=== PATIENT | female | born 1975 | race Caucasian/White ===

== ENCOUNTER 2018-01-30 22:42 | Emergency (ER) | payer BC ==
[~2018-01-30] VITALS: Ht 170.2 cm; Wt 117.3 kg
[~2018-01-30 22:42] MED LIST: B12 5,000 MCG1 EACH; CIPRO500 MG PO; CITALOPRAM HBR40 M1 PO; CYCLOBENZAPRINE5 MG; INSULIN PUMP1 EACH MC; LEVOTHROID50 MCG PO; MOTRIN800 MG PO; NAPROXEN SODIU550 MG; PHENTERMINE HCL15 MG PO; PHENTERMINE HCL30 MG PO; REGLAN10 MG PO; TRAMADOL HCL50 MG; VITAMIN D5000 UNIT PO; [UNRECOGNIZED DRUG - OTHER] SQ
[2018-01-30 23:11] LABS: HEMOGLOBIN 12.3 G/DL (11.9-15.5); MCH 31.5 PG (29.0-34.0); MCHC 34.2 G/DL (30.0-36.0); MCV 92.1 FL (83-99); PLATELET COUNT 225 K/uL (156-360); RBC DIS.WIDTH-CV 12.6 % (11.8-14.6); RBC DIS.WIDTH-SD 42.5 % (39-53); RED BLOOD COUNT 3.91 M/uL (3.80-5.20); WHITE BLOOD COUNT 13.7 K/uL (4.1-10.2)
[2018-01-30 23:19] LABS: ALBUMIN 3.5 g/dL (3.2-4.8); CHLORIDE 106 mEq/L (99-109); POTASSIUM 3.8 mEq/L (3.7-5.4); SODIUM 142 mEq/L (136-147)
[2018-01-30 23:21] LABS: GLUCOSE 107 mg/dL (70-99); TOTAL PROTEIN 6.1 g/dL (6.4-8.3)
[2018-01-30 23:23] LABS: TOTAL BILIRUBIN 0.6 mg/dL (0.0-1.0)
[2018-01-30 23:25] LABS: ALKALINE PHOSPHATASE 79 IU/L (3-129); CREATININE 0.8 mg/dL (0.6-1.3); GFR ESTIMATE (CALCULATED) > 59 mL/min/
[2018-01-30 23:26] LABS: APPEARANCE CLOUDY ((CLEAR)); BILIRUBIN NEGATIVE; BLOOD NEGATIVE; COLOR YELLOW ((YELLOW)); GLUCOSE (STRIP) NEGATIVE; KETONES NEGATIVE; LEUKOCYTES LARGE; NITRITE NEGATIVE; PROTEIN (STRIP) 30; SPECIFIC GRAVITY 1.025 (1.000-1.030); UROBILINOGEN 0.2 MG/DL (0.2-1.0)
[2018-01-30 23:26] LABS: UREA NITROGEN (BUN) 16 mg/dL (9-23)
[2018-01-30 23:27] LABS: AST (GOT) 15 IU/L (2-34)
[2018-01-30 23:28] LABS: ALT (GPT) 13 IU/L (3-49); LIPASE 15 U/L (1.0-51.0)
[2018-01-30 23:35] LABS: QUANTITATIVE HCG < 4.0 MIU/ML
[2018-01-30 23:45] LABS: EPITHELIAL CELLS 1+ /HPF; MUCUS NONE SEEN /LPF
[2018-01-30 23:46] LABS: BACTERIA 1+ /HPF; RED BLOOD CELLS 0-5 /HPF (0-5); UCUL ADDED? YES
[2018-01-31] MEDS ORDERED: PRILOSEC20 MG PO (01:44)
[2018-01-31] MEDS ORDERED: LEVAQUIN750 MG PO (01:46)
[2018-01-31 02:22] VITALS: BP 132/51
== END 2018-01-31 02:25 | disposition home or self-care (01) ==
LOC: EME 22:42
DX: K21.0 Gastro-esophageal reflux disease with esophagitis (principal); K29.70 Gastritis, unspecified, without bleeding; N39.0 Urinary tract infection, site not specified; F41.9 Anxiety disorder, unspecified; E11.43 Type 2 diabetes mellitus with diabetic autonomic (poly)neuropathy; K31.84 Gastroparesis; Z79.4 Long term (current) use of insulin; Z96.41 Presence of insulin pump (external) (internal); Z98.890 Other specified postprocedural states; Z88.2 Allergy status to sulfonamides; Z88.1 Allergy status to other antibiotic agents
CPT/HCPCS: 80053; 81003; 83690; 84702; 85027; 87086; 99281; 99284

== ENCOUNTER 2018-02-09 11:51 | Emergency (ER) | payer OTHER ==
[~2018-02-09] VITALS: Ht 170.2 cm; Wt 114.0 kg
[~2018-02-09 11:51] MED LIST changes: +LEVAQUIN750 MG PO; +PRILOSEC20 MG PO
[2018-02-09] MEDS ORDERED: NAPROSYN500 MG PO (13:47)
[2018-02-09 13:53] VITALS: BP 149/74
== END 2018-02-09 13:58 | disposition home or self-care (01) ==
LOC: EME 11:51
DX: S13.4XXA Sprain of ligaments of cervical spine, initial encounter (principal); V49.40XA Driver injured in collision with unspecified motor vehicles in traffic accident, initial encounter; Y92.410 Unspecified street and highway as the place of occurrence of the external cause; E11.9 Type 2 diabetes mellitus without complications; K31.84 Gastroparesis; F41.9 Anxiety disorder, unspecified; Z96.41 Presence of insulin pump (external) (internal); Z88.2 Allergy status to sulfonamides
CPT/HCPCS: 72040; 99281; 99283